=== PATIENT | female | born 1990 | race Caucasian/White ===

== ENCOUNTER 2019-03-26 20:41 | Emergency (ER) | payer OTHER ==
[2019-03-26] MEDS: traMADol 50 MG TAB PO (23:17)
== END 2019-03-26 23:45 | disposition home or self-care (01) ==
LOC: FTE 23:45
DX: M54.5 Low back pain (principal); F17.210 Nicotine dependence, cigarettes, uncomplicated
CPT/HCPCS: 81025; 99283